=== PATIENT | female | born 1985 | race African-American/Black ===

== ENCOUNTER 2017-07-11 09:01 | Emergency (ER) | payer MEDICAID ==
[~2017-07-11] VITALS: Ht 162.6 cm; Wt 59.0 kg
[~2017-07-11 09:01] MED LIST: AMOXICILLIN500 MG ORAL; AMOXICILLIN500 MG PO; BACTRIM-DS1 EA PO; BENADRYL25 MG ORAL; CIPRO500 MG PO; IBUPROFEN600 MG ORAL; IBUPROFEN600 MG PO; KEFLEX500 MG ORAL; MONISTAT 1 COM1 EACH VG; NKM; PENICILLIN V P500 MG PO; PHENAZOPYRIDIN100 MG ORAL
[2017-07-11 09:58] VITALS: BP 110/73
[2017-07-11 10:06] LABS: APPEARANCE,URINE SLIGHTLY CLOUDY; KETONES,URINE NEGATIVE (NEGATIVE); LEUKOCYTE ESTERASE ,URINE 3+ (NEGATIVE); NITRITE,URINE NEGATIVE (NEGATIVE); PH,URINE 5 (4.5-8.0); PROTEIN,URINE NEGATIVE (NEGATIVE); UROBILINOGEN,URINE NORMAL MG/DL (0.0-1.0)
[2017-07-11 10:15] LABS: WBC,URINE 15-20 /HPF (0 - 2)
[2017-07-11 10:16] LABS: BACTERIA,URINE FEW /HPF; MUCUS,URINE FEW /LPF (NONE/OCC); SQUAMOUS EPITHELIAL CELL,UR MODERATE /LPF (NONE/OCC)
[2017-07-11] MEDS ORDERED: Azithromycin 250mg tab ORAL ONE (10:30)
[2017-07-11 11:00] VITALS: BP 115/71
[2017-07-11 11:04] VITALS: BP 115/71
--- NOTE | 2017-07-11 20:55 | Emergency Room Report ---
History of Present Illness General Chief Complaint: General Complaint Source: Patient Present Illness HPI 31 yo F no sign pmhx came to ED for sore throat and STD testing. Pt states that she thinks her boyfriend is cheating on her and giving her an STD. only c/o of few says of sore throat. no fever chills cough or dysphagia. denies abd pain or vaginal dc. no dysuria. never had stds in the past. doesnt use protection Allergies: Coded Allergies: ACETAMINOPHEN (Unverified Allergy, Unknown, 01/21/15) Patient History Past Medical History: none Past Surgical History: none Pertinent Family History: none Last Menstrual Period: no period takes hoemonal control Nursing Documentation-PMH Past Medical History: No Stated History Review of Systems All Other Systems: negative except mentioned in HPI Physical Exam Vital Signs Date Time Temp Pulse Resp B/P Pulse Ox O2 Delivery O2 Flow Rate FiO2 07/11/17 09:06 97.3 92 16 110/73 99 Room Air Sp02 EP Interpretation: reviewed, normal General Appearance: normal inspection, well appearing, no apparent distress, alert, GCS 15, non-toxic Head: normocephalic, atraumatic Eyes: bilateral eye EOMI, bilateral eye PERRL, bilateral eye normal inspection ENT: normal voice, moist mucus membranes, other - mild erythem of posterior pharynx. no tonsillar enlargement/exudates. Neck: normal inspection, full range of motion, supple, no bony tend Respiratory: normal inspection, lungs clear, normal breath sounds, no respiratory distress, no retraction, no wheezing, speaking full sentences, chest symmetrical Cardiovascular #1: normal inspection, regular rate, rhythm, no edema, normal capillary refill Gastrointestinal: normal inspection, non tender, soft, non-distended, no guarding Musculoskeletal: normal inspection, back normal, normal range of motion, non- tender Neurologic: normal inspection, alert, oriented x3, responsive, express clerk III-XII nml as tested, motor strength/tone normal, sensory intact, normal gait, speech normal Psychiatric: normal inspection, judgement/insight normal, memory normal Skin: normal inspection, normal color, no rash, warm/dry, well hydrated, normal turgor Medical Decision Making Diagnostic Impression: Primary Impression: Concern about STD in female without diagnosis Additional Impression: Pharyngitis Qualified Codes: J02.9 - Acute pharyngitis, unspecified ER Course 31 Yo F with sore throat DDX: viral vs. infectious mononucleosis vs. bacterial pharyngitis vs. STDs Other serious causes such as MANAGED CARE LIAISON / RPA / deep space neck infection history/physical most consistent with viral pharyngitis vs. STD Plan: Motrin, supportive care. tx empirically w/ ceftriaxone / azithro ER course: Patient remains stable in ED. meds given. Disposition: Patient will be discharged to home. Patient will follow up with primary care doctor within 5 days. Strict return precautions discussed with patient such as worsening throat pain/swelling, dysphagia, high fever or chills, shortness of breath, abdominal pain, which may indicate severe illness. Patient verbalized understanding and agreed with plan. Last Vital Signs Date Time Temp Pulse Resp B/P Pulse Ox O2 Delivery O2 Flow Rate FiO2 07/11/17 11:04 97.3 70 16 115/71 99 Room Air Disposition: HOME, SELF-CARE Condition: Improved Patient Instructions: Sexually Transmitted Disease, Igjf-[id number], Pharyngitis, [id number] Additional Instructions: Please follow up with your primary care doctor within 3 days. Please return to the emergency room immediately if you are experiencing severe or worsening pain, high fevers or chills, shortness of breath, severe abdominal pain, nausea or vomiting. Gwendolyn Barrett M.D. Jul 11, 2017 20:55
== END 2017-07-11 11:05 | disposition home or self-care (01) ==
LOC: EMR 09:10
DX: J02.9 Acute pharyngitis, unspecified (principal); Z20.2 Contact with and (suspected) exposure to infections with a predominantly sexual mode of transmission; Z88.6 Allergy status to analgesic agent
CPT/HCPCS: 81001; 87086; 87491; 87590; 96372; 99283; J0696; Q0144

== ENCOUNTER 2019-01-17 19:24 | Emergency (ER) | payer MEDICAID, OTHER ==
[~2019-01-17] VITALS: Ht 160 cm; Wt 63.5 kg
[2019-01-17] MEDS ORDERED: SEROQUEL50 MG ORAL (19:54)
[2019-01-17 20:00] VITALS: BP 125/79
[2019-01-17] MEDS ORDERED: Bacitracin Oint UD TOPIC ONE ×2 (20:00→20:02)
--- NOTE | 2019-01-17 20:00 | NUR ---
ED Nurse Note: Patient walk in c/o suture removal on right elbow. Patient reports stitches were placed 1 month ago at a hospital in [place]. pt denies pain. seen by mack hayden.
[2019-01-17] MEDS ORDERED: BACITRACIN-P28.35 GM TP (20:05)
--- NOTE | 2019-01-17 20:05 | Emergency Room Report ---
History of Present Illness General Chief Complaint: Wound Recheck/Suture Removal Source: Patient Present Illness HPI 33-year-old female patient presents the ER for suture removal. States that she had the sutures placed at [facility] 1 month ago. States she initially injured it after hitting her elbow through a piece of glass. Reports that she did not want them taken out earlier because "it did not look healed yet ". Reports that she did not complete full course of antibiotics as instructed due to having side effects from the antibiotics. Denies bleeding from site of injury. Denies fever, chest pain, shortness of breath, vomiting. Denies other aggravating or relieving factors. Reports up-to-date on tetanus. Allergies: Coded Allergies: ACETAMINOPHEN (Unverified Allergy, Unknown, 01/21/15) Patient History Past Medical History: see triage record Last Menstrual Period: Depo Shot Now: No Reviewed Nursing Documentation: PMH: Agreed; PSxH: Agreed Nursing Documentation-PMH Past Medical History: No Stated History Review of Systems All Other Systems: negative except mentioned in HPI Physical Exam Vital Signs Date Time Temp Pulse Resp B/P (MAP) Pulse Ox O2 Delivery O2 Flow Rate FiO2 01/17/19 19:52 98.1 105 16 125/79 98 Room Air Sp02 EP Interpretation: reviewed, normal General Appearance: well appearing, no apparent distress, alert, GCS 15, non- toxic Head: normocephalic, atraumatic Eyes: bilateral eye normal inspection, bilateral eye PERRL ENT: hearing grossly normal, normal pharynx, no angioedema, normal voice, uvula midline, moist mucus membranes Neck: full range of motion Respiratory: lungs clear, normal breath sounds, no rhonchi, no respiratory distress, no accessory muscle use, no wheezing, speaking full sentences Cardiovascular #1: regular rate, rhythm, no edema Cardiovascular #2: 2+ radial (R), 2+ radial (L) Musculoskeletal: back normal, digits/nails normal, gait/station normal, normal range of motion, non-tender Psychiatric: mood/affect normal Skin: other - Healed laceration on right elbow, 3 sutures placed, no surrounding erythema or edema, wounds well approximated, no drainage, small keloid present Medical Decision Making PA Attestation Dr. Iniguez is my supervising Physician whom patient management has been discussed with. Diagnostic Impression: Primary Impression: Encounter for removal of sutures ER Course Pt. presents to the ED requesting wound check of right elbow. Ddx considered but are not limited to cellulitis, abscess, wound check, folliculitis. Vital signs: are WNL, pt. is afebrile Ordered Bacitrain. ER COURSE: Wound has no signs of infection., no erythema, edema, TTP, sensation is intact to light touch. 3 sutures removed. Patient tolerated procedure well without complications. Bacitracin applied to wound. Apply Neosporin to wound to reduce appearance of scar. ER precautions given. DISCHARGE: Rx provided for Bacitracin Patient instructed to continue with medications per initial ER provider instructions. At this time pt. is stable for d/c to home. Patient resting comfortably, in no acute distress, nontoxic appearing. Will provide printed patient care instructions and any necessary prescriptions. Care plan and follow up instructions have been discussed with the patient prior to discharge. Patient instructed to follow-up with primary care provider for further treatment and referral. Patient questions asked and answered. ER precautions given. Patient instructed to return to ER immediately for any new or worsening of symptoms including but not limited to fever, worsening of pain symptoms. - Please note that this Emergency Department Report was dictated using UpTapmolecular pathologist technology software, occasionally this can lead to erroneous entry secondary to interpretation by the dictation equipment. Last Vital Signs Date Time Temp Pulse Resp B/P (MAP) Pulse Ox O2 Delivery O2 Flow Rate FiO2 01/17/19 19:52 98.1 105 16 125/79 98 Room Air Disposition: HOME, SELF-CARE Condition: Stable Scripts Bacitracin/Polymyxin B Sulfate (BACITRACIN-POLYMYXIN OINTMENT) 28.35 Gm Oint...g. 1 APPLIC TP BID, #28 GM Prov: Thang Boston 01/17/19 Patient Instructions: Wound Check Additional Instructions: Followup with primary care provider in 3 -5 days. Take medications as directed. Keep clean and dry. Apply bacitracin or Neosporin to help reduce appearance of scar. Take antibiotics as instructed. Patient questions asked and answered. ER precautions given, patient instructed to return to ER immediately for any new or worsening of symptoms. Thang Boston Jan 17, 2019 20:05
--- NOTE | 2019-01-17 20:05 | NUR ---
ER Nurse Note: Verbal orders for bacitracin received from LILIYA Schmitt. Order inputed by nurse. Wound cleaned and ointmet applied. Pt tolerated well. Will continue to kiara.
[2019-01-17 20:10] VITALS: BP 125/79
--- NOTE | 2019-01-17 20:10 | NUR ---
ER DISCHARGE NOTE: Patient is cleared to be discharged per ERMD, pt is aox4, on room air, with stable vital signs. pt was given dc instructions, pt was able to verbalize understanding, pt id band and removed without complications. pt is able to ambulate with steady gait. pt took all belongings.
== END 2019-01-17 20:20 | disposition home or self-care (01) ==
LOC: EMR 20:16
DX: Z48.02 Encounter for removal of sutures (principal); Z88.6 Allergy status to analgesic agent
CPT/HCPCS: 99281

== ENCOUNTER 2020-11-14 16:40 | Emergency (ER) | payer MEDICAID, OTHER ==
[~2020-11-14 16:40] MED LIST changes: +BACITRACIN-P28.35 GM TP; +SEROQUEL50 MG ORAL
[2020-11-14] MEDS ORDERED: PREDNISONE20 MG ORAL (18:51)
[2020-11-14] MEDS ORDERED: ZITHROMAX250 MG ORAL (18:51)
--- NOTE | 2020-11-15 01:44 | Emergency Room Report ---
History of Present Illness General Chief Complaint: To Be Triaged Present Illness HPI Patient left prior to being seen. I attempted to find her in the waiting room, requesting security, and outside the emergency department. Allergies: Coded Allergies: ACETAMINOPHEN (Unverified Allergy, Unknown, 01/21/15) Patient History Past Medical History: old chart reviewed Social History: Reports: smoking Medical Decision Making Diagnostic Impression: Primary Impression: Patient left without being seen ER Course I was attempting to find the patient. Went to call her on the phone. Apparently she returned any new chart was made. Please see that chart. Status: other Disposition: LEFT W/OUT BEING SEEN Condition: Unknown Yazan Koch MD Nov 15, 2020 01:44
== END 2020-11-15 17:00 | disposition left against medical advice (07) ==
LOC: EMR 16:50
DX: J02.9 Acute pharyngitis, unspecified (principal); F17.200 Nicotine dependence, unspecified, uncomplicated; Z88.6 Allergy status to analgesic agent; Z53.21 Procedure and treatment not carried out due to patient leaving prior to being seen by health care provider

== ENCOUNTER 2020-11-14 18:35 | Emergency (ER) | payer MEDICAID ==
[~2020-11-14] VITALS: Ht 162.6 cm; Wt 68.0 kg
--- NOTE | 2020-11-14 18:43 | NUR ---
ED Nurse Note: ambulated to ed c/o itchy throat x 2 days. requests cough medicine and antibiotic. denies fever and chills. patient ao4 with no acute distress. vitals stable. all safety measures met.
[2020-11-14 18:44] VITALS: BP 115/69
[2020-11-14] MEDS ORDERED: ZITHROMAX250 MG ORAL (18:51)
[2020-11-14] MEDS ORDERED: PREDNISONE20 MG ORAL (18:51)
--- NOTE | 2020-11-14 18:51 | Emergency Room Report ---
History of Present Illness General Chief Complaint: Sore Throat Source: Patient Present Illness HPI 35-year-old female with no signal past medical history here complaining of sore throat, congestion x2 days. Denies any cough or shortness of breath. Denies fever and chills, diarrhea. Reports that she is beginning to lose her sense of taste. Has not taken medication for symptom relief. Denies . Denies abdominal pain, nausea vomiting diarrhea. Sitting comfortably with stable vital signs. Allergies: Coded Allergies: ACETAMINOPHEN (Unverified Allergy, Unknown, 01/21/15) COVID-19 Screening Contact w/high risk pt: No Experienced COVID-19 symptoms?: No COVID-19 Testing performed RN ACLS: No Patient History Past Medical History: see triage record Past Surgical History: none Pertinent Family History: none Last Menstrual Period: control Now: No Immunizations: UTD Reviewed Nursing Documentation: PMH: Agreed; PSxH: Agreed Nursing Documentation-PMH Past Medical History: No Stated History Review of Systems All Other Systems: negative except mentioned in HPI Physical Exam Vital Signs Date Time Temp Pulse Resp B/P (MAP) Pulse Ox O2 Delivery O2 Flow Rate FiO2 11/14/20 18:37 98.2 92 18 115/69 (84) 96 Room Air Sp02 EP Interpretation: reviewed, normal General Appearance: no apparent distress, alert, GCS 15, non-toxic Head: normocephalic, atraumatic Eyes: bilateral eye normal inspection, bilateral eye PERRL ENT: hearing grossly normal, normal pharynx, no angioedema, normal voice Neck: full range of motion, supple/symm/no masses Respiratory: no respiratory distress, no retraction, no accessory muscle use, speaking full sentences Cardiovascular #1: regular rate, rhythm Gastrointestinal: non-distended Genitourinary: no CVA tenderness Musculoskeletal: back normal Neurologic: alert, motor strength/tone normal, oriented x3, sensory intact, responsive, speech normal Psychiatric: judgement/insight normal, memory normal, mood/affect normal, no suicidal/homicidal ideation Skin: no rash Lymphatic: no adenopathy Medical Decision Making PA Attestation All diagnoses and treatment plans were reviewed and discussed with my supervising physician Dr. Koch Diagnostic Impression: Primary Impression: Viral syndrome ER Course 35-year-old female with no signal past medical history here complaining of sore throat, congestion x2 days. Denies any cough or shortness of breath. Denies fever and chills, diarrhea. Reports that she is beginning to lose her sense of taste. Has not taken medication for symptom relief. Denies . Denies abdominal pain, nausea vomiting diarrhea. Sitting comfortably with stable vital signs. Ddx considered but are not limited to: strep pharyngitis, URI, tonsillitis, peritonsillar abscess, influneza, coronavirus Vital signs: are WNL, pt. is afebrile H&PE are most consistent with: Suspected coronavirus ORDERS: Azithromycin, prednisone ED INTERVENTIONS: None required at this time. DISCHARGE: At this time pt. is stable for d/c to home. Will provide printed patient care instructions, and any necessary prescriptions. Care plan and follow up instructions have been discussed with the patient prior to discharge. Advised patient to get tested for Covid, take medication as directed, self quarantine, if worsening symptoms return to emergency room Last Vital Signs Date Time Temp Pulse Resp B/P (MAP) Pulse Ox O2 Delivery O2 Flow Rate FiO2 11/14/20 18:44 98.2 86 18 115/69 96 Room Air Disposition: HOME, SELF-CARE Condition: Stable Scripts Prednisone* (PREDNISONE*) 20 Mg Tablet 40 MG ORAL DAILY for 5 Days, #10 TAB Prov: Rell Mckeon 11/14/20 Azithromycin* (ZITHROMAX*) 250 Mg Tablet 250 MG ORAL DAILY, #6 TAB 0 Refills Take two tables once daily for 1 day, then one tablet once daily for 4 days. Prov: Rell Mckeon 11/14/20 Patient Instructions: Upper Respiratory Infection, Adult Additional Instructions: Take medication as directed, follow primary care provider, get tested for Covid, I suggest that you isolate yourself for 2 weeks, if worsening symptoms return the emergency Rell Mckeon Nov 14, 2020 18:51
[2020-11-14 18:55] VITALS: BP 115/69
--- NOTE | 2020-11-14 18:55 | NUR ---
ER DISCHARGE NOTE: Patient is cleared to be discharged per ERMD, pt is aox4, on room air, with stable vital signs. pt was given dc and prescription instructions, pt was able to verbalize understanding, pt id band removed. pt is able to ambulate with steady gait. pt took all belongings.
== END 2020-11-14 18:55 | disposition home or self-care (01) ==
LOC: EMR 18:55
DX: B34.9 Viral infection, unspecified (principal); Z88.6 Allergy status to analgesic agent
CPT/HCPCS: 99282